=== PATIENT | male | born 1975 | race Caucasian/White ===

== ENCOUNTER 2024-07-24 10:46 | Emergency (ER) | payer OTHER, SELFPAY ==
[2024-07-24 10:53] VITALS: BP 132/79
--- NOTE | 2024-07-24 10:59 | ED.GENMED ---
History of Present Illness
General
Chief Complaint: Alcohol Problem
Source: patient and ambulance crew
Time Seen by Provider: 07/24/24 10:48
History of Present Illness
History of Present Illness:
49-year-old male presenting to the emergency department via EMS after he was reportedly found arguing with his partner, reportedly intoxicated, interaction was reportedly both physical and verbal and patient was found to be intoxicated having a BAL
of 0.3. Patient brought to the ER via EMS for further evaluation. Patient denies any physical complaints at this time. He is also denying any suicidal ideation, homicidal ideation, auditory or visual hallucinations. Patient reportedly had
marijuana in his possession which is why police were notified. Patient does report that he drinks multiple times per week and is currently in the process of finding alcohol rehab. No other concerns presently
Past History
Past History
ED Past Medical History: Hypercholesterolemia and Other (Doubt)
ED Past Surgical History: Orthopedic (shoulder)
Social History
Tobacco: Non-smoker
Alcohol: Occasional
Drug: None
Personal: Partner
Living: alone
Employment: Employed
Review of Systems
Review of Systems
All Other Systems: ROS reviewed and negative except as documented in HPI and ROS
Phy Exam
Physical Exam
Physical Exam:
GENERAL: Alert , in no apparent distress, does appear intoxicated however answers questions appropriately
EYE: conjunctiva clear
Head: Normocephalic atraumatic
NECK: Supple,
ENT: mmm.
LUNGS: no acute respiratory distress
NEUROLOGICAL: Alert and orientedx 3, ambulates with steady gait
SKIN: Warm and dry, skin intact.
MUSCULOSKELETAL: well perfused.
PSYCH: Normal and appropriate interaction.
Scores
Heart Failure Risk
Heart Failure Risk Score: Not Applicable
Heart Score for Chest Pain Patients
STEMI patient?: Not applicable
Withdrawal Assessment of Alcohol
Withdrawal Assessment Completed?: Not applicable
Course
Vital Signs
Initial and Last Documented VS:
Initial Vital Signs
Temp Pulse BP Pulse Ox
98.3 F 77 132/79 94
07/24/24 10:53 07/24/24 10:53 07/24/24 10:53 07/24/24 10:53
Last Documented Vital Signs
Temp Pulse Resp BP Pulse Ox
98.3 F 72 16 122/71 99
07/24/24 10:53 07/24/24 11:08 07/24/24 11:08 07/24/24 11:08 07/24/24 11:08
MDM/Problems Addressed
Differential Diagnosis Includes:
Acute alcohol intoxication, patient denying any suicidal or homicidal ideations, no current signs to suggest acute alcohol withdrawal
MDM/Problems Addressed:
49-year-old male presenting to the emergency department for evaluation of acute alcohol intoxication. Patient without any complaints at this time. Binge drinks multiple times per week. Offered [facility] [employer] [facility] and [facility] crisis evaluation however
patient declines both of these. At this time patient states that he would like to call an [employer] to take him home.
*Pulse Oximetry
Patient hypoxic: no
*Critical Care Note
Total Time (30-74mins, 75-104mins- exclusive of procedures): Not Applicable
Patient Management
Escalation/DeEscalation of care consider admission/obs:
multiple attempts made to contact officers who recommended patient come to ED without return phone call being received. Patient stable for discharge home
ED Attending Note
-
Portions of this chart may have been created with voice recognition software.� Occasional wrong word or��sound alike� substitutions may have occurred due to the inherent limitations of voice recognition software.
Discharge Plan
Departure
Patient Disposition: Home (Routine Discharge)
Date of Disposition: 07/24/24
Time of Disposition: 11:01
Patient with high blood pressure during this ER visit?: No
Discharge Problem:
Alcohol abuse
Instructions: Alcohol Use Disorder (DC)
Prescriptions:
No Action
valacyclovir [Valtrex] 1,000 MG tablet
1,000 mg PO TID Qty: 21 0RF
prednisone 10 MG tablet
10 mg PO .TAPER Qty: 30 0RF
Rx Instructions:
Take 40mg daily x3days, 30mg daily x3days,
20mg daily x3days, 10mg daily x3days.
Interventions
Interventions:
*Risk Screen - Suicide Last Done: 07/24/24 10:50
*General Assessment Last Done: 07/24/24 10:50
*Neglect/Abuse Screening Last Done: 07/24/24 10:50
ED- Fall Risk Assessment Last Done: 07/24/24 10:50
*Nursing Disposition Last Done: 07/24/24 11:07
ED- Neurological Assessment Last Done: 07/24/24 10:50
ED-Psychological Assessment Last Done: 07/24/24 10:50
Discharge Date and Time
Discharge Date/Time: 07/24/24 11:18
Print Language: [id number]
[2024-07-24 11:08] VITALS: BP 122/71
== END 2024-07-24 11:18 | disposition home or self-care (01) ==
LOC: EMR 10:46
PROVIDERS: EMERGENCY PHYSICIAN Emergency Medicine; FAMILY PHYSICIAN Family Medicine
DX: F10.129 Alcohol abuse with intoxication, unspecified (principal); E78.00 Pure hypercholesterolemia, unspecified
CPT/HCPCS: 99283